=== PATIENT | female | born 1940 | race African-American/Black ===

== ENCOUNTER 2020-01-12 13:53 | Inpatient (IN) ==
[2020-01-12] MEDS: dilTIAZem Drip 125 MG/125 ML PREMIX IV SCH ×2 (13:48→18:01)
[2020-01-12] MEDS ORDERED: FUROSEMIDE 40 MG/4 ML VIAL IV STA (14:03)
[2020-01-12] MEDS ORDERED: DIGOXIN 0.5 MG/2 ML AMP IV STA (14:10)
[2020-01-12] MEDS ORDERED: HEPARIN DRIP 25,000 UNITS/500 ML PREMIX IV SCH (14:30)
[2020-01-12] MEDS ORDERED: SIMETHICONE CHEW 125 MG TABLET PO PRN (15:02)
[2020-01-12] MEDS ORDERED: ONDANSETRON 4 MG/2 ML VIAL IV PRN (15:05)
[2020-01-12] MEDS ORDERED: ALBUTEROL/IPRATROPIUM 3 ML NEB RESP TX PRN (15:05)
[2020-01-12] MEDS ORDERED: DEXTROSE 10% 250 ML BAG IV PRN (15:05)
[2020-01-12] MEDS ORDERED: GLUCAGON 1 MG VIAL IM PRN ×2 (15:05→18:20)
[2020-01-12 15:17] LABS: Basophils % 0.2 % (0.0-0.8); Eosinophils # 0.2 10*3/uL (0.0-0.87); Eosinophils % 1.6 % (0.00-10.9); Hematocrit 40.5 VOL% (35.7-47.0); Hemoglobin 12.6 GM/DL (12.0-16.0); Immature Granulocytes % 0.3 %; Immature Granulocytes Absolute 0.03 #; Lymphocytes # 4.4 10*3/uL (1.4-4.0); Lymphocytes % 46.1 % (21.3-54.2); Mean Corpuscular HGB Conc 31.1 GM/DL (32-36); Mean Corpuscular Volume 84.7 FL (87-102); Mean Platelet Volume 11.1 FL (9.6-12.0); Monocytes % 6.6 % (1.7-12.7); Neutrophils % 45.2 % (38.7-73.9); Platelet Count 193 T/CUMM (130-400); Red Blood Count 4.78 MC/CUMM (3.8-5.5); Red Cell Distribution Width 14.6 % (9.3-17.3); White Blood Count 9.5 T/CUMM (4-12)
[2020-01-12 15:30] LABS: PT Patient Result 11.3 SECS (9.6-12.2)
[2020-01-12] MEDS ORDERED: APIXABAN 5 MG TABLET PO ONE (15:31)
[2020-01-12 15:43] LABS: Alanine Aminotransferase 23 U/L (13-56); Alkaline Phosphatase 93 U/L (45-117); Aspartate Amino Transferase 18 U/L (0-37); Bilirubin,Total < 0.39 MG/DL (0.2-1.0); Blood Urea Nitrogen 15 MG/DL (7-18); Calcium 9.3 MG/DL (8.5-10.1); Estimated Glom Filtration Rate 81 ML/MIN; Glucose 177 MG/DL (74-106); Osmolality,Calculated 281.5 MOS/KG (273-304); Total Protein 8.2 G/DL (6.4-8.3)
[2020-01-12 15:45] LABS: Troponin I 0.076 NG/ML (0.00-0.045)
[2020-01-12] MEDS ORDERED: cefTRIAXone 1,000 MG in SYRINGE 1 EACH IV SCH (16:00)
[2020-01-12] MEDS ORDERED: INSULIN REGULAR 100 UNIT/ML SUBCUT SCH (16:30)
[2020-01-12] MEDS ORDERED: DEXTROSE 50% 25 GM/50 ML VIAL IV PRN (18:20)
[2020-01-12] MEDS: GABAPENTIN 100 MG CAPSULE PO SCH (21:12)
[2020-01-12] MEDS: FERROUS SULFATE 325 MG TABLET PO SCH (21:13)
[2020-01-12] MEDS: INSULIN LISPRO 100 UNIT/ML SUBCUT SCH (21:13)
[2020-01-12] MEDS: ATORVASTATIN 20 MG TABLET PO SCH (21:13)
[2020-01-12] MEDS: APIXABAN 5 MG TABLET PO SCH (21:13)
[2020-01-12] MEDS: INSULIN GLARGINE 100 UNIT/ML SUBCUT SCH (21:14)
[2020-01-13] MEDS: dilTIAZem Drip 125 MG/125 ML PREMIX IV SCH ×2 (05:20→15:05)
[2020-01-13] MEDS: LEVOTHYROXINE 112 MCG TABLET PO SCH (05:57)
[2020-01-13 06:06] LABS: Basophils % 0.3 % (0.0-0.8); Eosinophils # 0.2 10*3/uL (0.0-0.87); Eosinophils % 2.8 % (0.00-10.9); Hematocrit 38.6 VOL% (35.7-47.0); Hemoglobin 12.1 GM/DL (12.0-16.0); Immature Granulocytes % 0.2 %; Immature Granulocytes Absolute 0.01 #; Lymphocytes # 2.6 10*3/uL (1.4-4.0); Lymphocytes % 40.6 % (21.3-54.2); Mean Corpuscular HGB Conc 31.3 GM/DL (32-36); Mean Platelet Volume 10.9 FL (9.6-12.0); Monocytes % 8.8 % (1.7-12.7); Neutrophils % 47.3 % (38.7-73.9); Platelet Count 190 T/CUMM (130-400); Red Blood Count 4.65 MC/CUMM (3.8-5.5); Red Cell Distribution Width 14.5 % (9.3-17.3); White Blood Count 6.5 T/CUMM (4-12)
[2020-01-13 06:30] LABS: Alanine Aminotransferase 20 U/L (13-56); Albumin 3.4 G/DL (3.4-5.0); Alkaline Phosphatase 82 U/L (45-117); Aspartate Amino Transferase 16 U/L (0-37); Bilirubin,Total < 0.39 MG/DL (0.2-1.0); Blood Urea Nitrogen 14 MG/DL (7-18); Calcium 9.1 MG/DL (8.5-10.1); Estimated Glom Filtration Rate 110 ML/MIN; Glucose 90 MG/DL (74-106); HDL Cholesterol 42 MG/DL (40-60); Osmolality,Calculated 279.4 MOS/KG (273-304); Risk Ratio 2.74; Total Protein 7.4 G/DL (6.4-8.3); Triglycerides 102 MG/DL (2-150); VLDL CHOLESTEROL 20.4 MG/DL
[2020-01-13 07:19] LABS: Free T4 (Free Thyroxine) 1.14 NG/DL (0.76-1.46); Thyroid Stimulating Hormone 2.86 uIU/ml (0.358-3.74)
[2020-01-13] MEDS ORDERED: POTASSIUM CHLORIDE 20 MEQ TABLET PO PRN (07:30)
[2020-01-13] MEDS ORDERED: MAGNESIUM SULF RIDER 2 GM in PREMIX 1 EACH IV PRN (07:39)
[2020-01-13] MEDS ORDERED: CLOPIDOGREL 75 MG TABLET PO SCH (09:00)
[2020-01-13] MEDS: APIXABAN 5 MG TABLET PO SCH ×2 (09:18→20:34)
[2020-01-13] MEDS: FERROUS SULFATE 325 MG TABLET PO SCH ×3 (09:18→20:34)
[2020-01-13] MEDS: POTASSIUM CHLORIDE 20 MEQ TABLET PO PRN ×3 (09:18→14:27)
[2020-01-13] MEDS: ASPIRIN EC 81 MG TABLET PO SCH (09:18)
[2020-01-13] MEDS: hydroCHLOROthiazide 25 MG TABLET PO SCH (09:18)
[2020-01-13] MEDS: PANTOPRAZOLE 40 MG TABLET PO SCH (09:19)
[2020-01-13] MEDS: INSULIN LISPRO 100 UNIT/ML SUBCUT SCH ×4 (09:25→20:33)
[2020-01-13] MEDS: ACETAMINOPHEN 325 MG TABLET PO PRN (11:17)
[2020-01-13] MEDS: INSULIN GLARGINE 100 UNIT/ML SUBCUT SCH (20:33)
[2020-01-13] MEDS: GABAPENTIN 100 MG CAPSULE PO SCH (20:33)
[2020-01-13] MEDS: ATORVASTATIN 20 MG TABLET PO SCH (20:34)
[2020-01-14] MEDS: dilTIAZem Drip 125 MG/125 ML PREMIX IV SCH ×3 (00:48→22:37)
[2020-01-14] MEDS: LEVOTHYROXINE 112 MCG TABLET PO SCH (05:38)
[2020-01-14] MEDS: INSULIN LISPRO 100 UNIT/ML SUBCUT SCH ×4 (07:46→20:22)
[2020-01-14] MEDS: APIXABAN 5 MG TABLET PO SCH (10:37)
[2020-01-14] MEDS: ASPIRIN EC 81 MG TABLET PO SCH (10:37)
[2020-01-14] MEDS: FERROUS SULFATE 325 MG TABLET PO SCH ×3 (10:37→20:21)
[2020-01-14] MEDS: PANTOPRAZOLE 40 MG TABLET PO SCH (10:38)
[2020-01-14] MEDS: hydroCHLOROthiazide 25 MG TABLET PO SCH (10:38)
[2020-01-14] MEDS ORDERED: METOPROLOL TARTRATE 5 MG/5 ML VIAL IV ONE (13:24)
[2020-01-14] MEDS: METOPROLOL TARTRATE 25 MG TABLET PO SCH ×2 (13:39→20:23)
[2020-01-14] MEDS: INSULIN GLARGINE 100 UNIT/ML SUBCUT SCH (20:22)
[2020-01-14] MEDS: ATORVASTATIN 20 MG TABLET PO SCH (20:23)
[2020-01-14] MEDS: GABAPENTIN 100 MG CAPSULE PO SCH (20:24)
[2020-01-15] MEDS: dilTIAZem Drip 125 MG/125 ML PREMIX IV SCH ×3 (04:31→23:10)
[2020-01-15] MEDS: LEVOTHYROXINE 112 MCG TABLET PO SCH (06:28)
[2020-01-15] MEDS: INSULIN LISPRO 100 UNIT/ML SUBCUT SCH ×4 (08:02→21:19)
[2020-01-15] MEDS: hydroCHLOROthiazide 25 MG TABLET PO SCH (09:43)
[2020-01-15] MEDS: FERROUS SULFATE 325 MG TABLET PO SCH ×3 (09:43→21:19)
[2020-01-15] MEDS: PANTOPRAZOLE 40 MG TABLET PO SCH (09:43)
[2020-01-15] MEDS: ASPIRIN EC 81 MG TABLET PO SCH (09:43)
[2020-01-15] MEDS: METOPROLOL TARTRATE 25 MG TABLET PO SCH ×2 (09:43→21:20)
[2020-01-15 11:52] LABS: Basophils % 0.3 % (0.0-0.8); Eosinophils # 0.1 10*3/uL (0.0-0.87); Eosinophils % 1.3 % (0.00-10.9); Hematocrit 38.2 VOL% (35.7-47.0); Hemoglobin 11.7 GM/DL (12.0-16.0); Immature Granulocytes % 0.4 %; Immature Granulocytes Absolute 0.04 #; Lymphocytes # 3.7 10*3/uL (1.4-4.0); Lymphocytes % 36.1 % (21.3-54.2); Mean Corpuscular HGB Conc 30.6 GM/DL (32-36); Mean Corpuscular Volume 85.3 FL (87-102); Mean Platelet Volume 10.9 FL (9.6-12.0); Monocytes % 12.8 % (1.7-12.7); Neutrophils % 49.1 % (38.7-73.9); Platelet Count 206 T/CUMM (130-400); Red Blood Count 4.48 MC/CUMM (3.8-5.5); Red Cell Distribution Width 14.5 % (9.3-17.3); White Blood Count 10.2 T/CUMM (4-12)
[2020-01-15 12:13] LABS: Calcium 9.2 MG/DL (8.5-10.1); Osmolality,Calculated 276.7 MOS/KG (273-304)
[2020-01-15] MEDS ORDERED: ENOXAPARIN 100 MG/ML SYRINGE SUBCUT ONE (14:00)
[2020-01-15] MEDS: INSULIN GLARGINE 100 UNIT/ML SUBCUT SCH (21:20)
[2020-01-15] MEDS: GABAPENTIN 100 MG CAPSULE PO SCH (21:20)
[2020-01-15] MEDS: ATORVASTATIN 20 MG TABLET PO SCH (21:20)
[2020-01-16 04:57] LABS: Basophils % 0.2 % (0.0-0.8); Eosinophils # 0.1 10*3/uL (0.0-0.87); Eosinophils % 1.6 % (0.00-10.9); Hematocrit 37.2 VOL% (35.7-47.0); Hemoglobin 11.4 GM/DL (12.0-16.0); Immature Granulocytes % 0.6 %; Immature Granulocytes Absolute 0.05 #; Lymphocytes % 34.2 % (21.3-54.2); Mean Corpuscular HGB Conc 30.6 GM/DL (32-36); Mean Corpuscular Volume 85.3 FL (87-102); Mean Platelet Volume 11.7 FL (9.6-12.0); Monocytes % 14.2 % (1.7-12.7); Neutrophils % 49.2 % (38.7-73.9); Platelet Count 194 T/CUMM (130-400); Red Blood Count 4.36 MC/CUMM (3.8-5.5); Red Cell Distribution Width 14.4 % (9.3-17.3); White Blood Count 8.7 T/CUMM (4-12)
[2020-01-16 05:22] LABS: Calcium 9.1 MG/DL (8.5-10.1); Osmolality,Calculated 281.5 MOS/KG (273-304)
[2020-01-16] MEDS: LEVOTHYROXINE 112 MCG TABLET PO SCH (06:12)
[2020-01-16] MEDS ORDERED: propofoL 200 MG/20 ML VIAL IV ONE (07:25)
[2020-01-16] MEDS ORDERED: ETOMIDATE 20 MG/10 ML VIAL IV ONE (07:25)
[2020-01-16] MEDS: INSULIN LISPRO 100 UNIT/ML SUBCUT SCH ×4 (09:07→21:06)
[2020-01-16] MEDS: FERROUS SULFATE 325 MG TABLET PO SCH ×3 (09:08→21:12)
[2020-01-16] MEDS: METOPROLOL TARTRATE 25 MG TABLET PO SCH ×2 (09:08→21:06)
[2020-01-16] MEDS: APIXABAN 5 MG TABLET PO SCH ×2 (09:08→21:06)
[2020-01-16] MEDS: AMIODARONE 200 MG TABLET PO SCH ×2 (09:09→21:05)
[2020-01-16] MEDS: POTASSIUM CHLORIDE 20 MEQ TABLET PO PRN ×2 (09:09→12:44)
[2020-01-16] MEDS: ASPIRIN EC 81 MG TABLET PO SCH (09:09)
[2020-01-16] MEDS: PANTOPRAZOLE 40 MG TABLET PO SCH (09:09)
[2020-01-16] MEDS: hydroCHLOROthiazide 25 MG TABLET PO SCH (09:09)
[2020-01-16] MEDS: ACETAMINOPHEN 325 MG TABLET PO PRN ×2 (09:37→21:04)
[2020-01-16] MEDS: INSULIN GLARGINE 100 UNIT/ML SUBCUT SCH (21:04)
[2020-01-16] MEDS: GABAPENTIN 100 MG CAPSULE PO SCH (21:05)
[2020-01-16] MEDS: ATORVASTATIN 20 MG TABLET PO SCH (21:06)
[2020-01-17 04:32] LABS: Basophils % 0.2 % (0.0-0.8); Eosinophils # 0.2 10*3/uL (0.0-0.87); Eosinophils % 1.5 % (0.00-10.9); Hematocrit 38.4 VOL% (35.7-47.0); Hemoglobin 11.6 GM/DL (12.0-16.0); Immature Granulocytes % 0.4 %; Immature Granulocytes Absolute 0.05 #; Lymphocytes # 4.4 10*3/uL (1.4-4.0); Mean Corpuscular HGB Conc 30.2 GM/DL (32-36); Mean Corpuscular Volume 87.1 FL (87-102); Mean Platelet Volume 11.9 FL (9.6-12.0); Monocytes % 13.5 % (1.7-12.7); Neutrophils % 47.4 % (38.7-73.9); Platelet Count 203 T/CUMM (130-400); Red Blood Count 4.41 MC/CUMM (3.8-5.5); Red Cell Distribution Width 14.7 % (9.3-17.3)
[2020-01-17 05:04] LABS: Calcium 9.5 MG/DL (8.5-10.1); Osmolality,Calculated 279.5 MOS/KG (273-304)
[2020-01-17] MEDS: LEVOTHYROXINE 112 MCG TABLET PO SCH (05:59)
[2020-01-17] MEDS: INSULIN LISPRO 100 UNIT/ML SUBCUT SCH ×2 (07:40→11:54)
[2020-01-17] MEDS: ASPIRIN EC 81 MG TABLET PO SCH (08:56)
[2020-01-17] MEDS: POTASSIUM CHLORIDE 20 MEQ TABLET PO PRN ×2 (08:56→11:55)
[2020-01-17] MEDS: hydroCHLOROthiazide 25 MG TABLET PO SCH (08:56)
[2020-01-17] MEDS: AMIODARONE 200 MG TABLET PO SCH (08:56)
[2020-01-17] MEDS: PANTOPRAZOLE 40 MG TABLET PO SCH (08:57)
[2020-01-17] MEDS: METOPROLOL TARTRATE 25 MG TABLET PO SCH (08:57)
[2020-01-17] MEDS: ACETAMINOPHEN 325 MG TABLET PO PRN (08:57)
[2020-01-17] MEDS: APIXABAN 5 MG TABLET PO SCH (08:57)
[2020-01-17] MEDS: FERROUS SULFATE 325 MG TABLET PO SCH (08:57)
[2020-01-17 11:35] VITALS: BP 98/52
[2020-01-17] MEDS ORDERED: traMADol 50 MG TABLET PO PRN (11:35)
[2020-01-17 14:46] LABS: Apearance,Urine CLEAR (Clear); Bilirubin,Urine Negative (Negative); Blood, Urine Negative (Negative); Glucose,Urine (UA) Negative (Negative); Hyaline Casts,Urine 1 /LPF (0-3); Ketones,Urine Negative (Negative); Mucus,Urine Occasional /LPF (Occasional); Nitrite,Urine Negative (Negative); Protein,Urine Negative; RBC,Urine 2 /HPF (0-4); Squamous Epithelial Cell,Urine Occasional /HPF (0-10); Urine Color Yellow (Yellow); Urine Specific Gravity 1.019 (1.001-1.035); WBC,Urine 1 /HPF (0-6)
[2020-01-17] MEDS ORDERED: DICLOFENAC 1% GEL 100 GM TUBE TOP SCH (15:00)
== END 2020-01-17 15:09 | disposition home or self-care (01) | DRG 308 ==
LOC: N.EDINP 13:53 → N.ED 13:53 → N.TELES 15:30 → SUATTDRO 01-13 15:43
PROVIDERS: ADMIT Family Medicine; ATTEND Internal Medicine